=== PATIENT | male | born 1965 | race Hispanic/Latino ===

== ENCOUNTER 2024-01-31 01:21 | Inpatient (IN) | payer OTHER, SELFPAY ==
[2024-01-31] MEDS ORDERED: dilTIAZem 125 MG/25 ML SDV ONE (01:41)
[2024-01-31 02:19] LABS: Hematocrit 30.9 % (42.0-52.0); Hemoglobin 9.7 g/dL (14.0-18.0); Mean Corpuscular HGB CONC 31.4 g/dL (32.0-36.0); Mean Corpuscular Hemoglobin 28.4 pg (27.0-31.0); Mean Corpuscular Volume 90.6 fL (78.0-98.0); Mean Platelet Volume 9.2 fL (7.4-10.4); Platelet Count 151 10x3/uL (130-400); RBC Distribution Width 14.6 % (11.5-14.5); Red Blood Cell (RBC) Count 3.41 mill/uL (4.70-6.10)
[2024-01-31] MEDS ORDERED: Sodium Chloride 0.9% 100 ML ONE (02:22)
[2024-01-31] MEDS ORDERED: cefTRIAXone (ROCEPHIN) 2 GM VIAL ONE (02:22)
[2024-01-31] MEDS ORDERED: Azithromycin 500 MG VIAL ONE (02:22)
[2024-01-31 02:23] LABS: ALT (SGPT) 27 U/L (8-55); AST (SGOT) 48 U/L (5-34); Albumin 2.3 g/dL (3.5-5.0); Alkaline Phosphatase 105 U/L (40-110); Anion Gap 21 mmol/L (10-20); BUN (Urea Nitrogen) 58 mg/dL (8.4-25.7); Bilirubin, Total 0.6 mg/dL (0.2-1.2); Calc. Creatinine Clearance 0 mL/min (70-130); Calcium 8.5 mg/dL (7.8-10.44); Carbon Dioxide 18 mmol/L (22-29); Chloride 97 mmol/L (98-107); Estimated GFR 13; Globulin 5.5 g/dL (2.4-3.5); Glucose 144 mg/dL (70-105); Magnesium 1.8 mg/dL (1.6-2.6); Potassium 3.4 mmol/L (3.5-5.1); Protein, Total 7.8 g/dL (6.0-8.3); Sodium 133 mmol/L (136-145)
[2024-01-31 02:24] LABS: Acetaminophen Less than 10 mcg/mL (10.0-30.0); Alcohol Less than 10.0 mg/dL (Less than 10); Salicylate Less than 8.0 mg/dL (15.0-30.0)
[2024-01-31 02:44] LABS: Band 29 % (5-11); Lymphocytes 5 % (21-51); Monocytes 1 % (0-10); Neutrophil 65 % (42-75); Platelet Adequacy Comment Platelets Normal; RBC Morphology Within Normal Limits
[2024-01-31 03:08] LABS: Troponin I 0.022 ng/mL (< 0.028)
[2024-01-31] MEDS ORDERED: Ondansetron PF 4 MG/2 ML Vial ONE (03:12)
[2024-01-31 03:34] LABS: Bilirubin Negative (Negative); Blood, Urine Large (Negative); Glucose, Urine (Dipstick) Negative (Negative); Ketone, Urine Negative (Negative); Leukocyte Negative (Negative); Nitrite Negative (Negative); Protein, Urine (Dipstick) 100 mg/dL (Neg-Trace); Urobilinogen 0.2 mg/dL (Less than 2); pH, Urine 6.5 (5.0-9.0)
[2024-01-31 03:39] LABS: Bacteria/HPF None Seen HPF (None Seen); CAUTI Indications for Culture Fever or rigors; RBC/HPF Greater than 50 HPF (0-3); Squamous Epithelial None Seen HPF (0-3)
[2024-01-31 03:40] LABS: Clarity Cloudy (Clear)
[2024-01-31 03:41] LABS: Urine Culture Reflex Yes Yes
[2024-01-31 03:44] LABS: Amphetamine Not Detected (NotDetected); Barbiturates Screen Not Detected (NotDetected); Benzodiazepine Screen Not Detected (NotDetected); Cocaine Metabolite Screen Not Detected (NotDetected); Methadone Not Detected (NotDetected); Methamphetamine Not Detected (NotDetected); Opiate Screen Not Detected (NotDetected); Oxycodone Screen Not Detected (NotDetected); Phencyclidine (PCP) Not Detected (NotDetected); THC/Cannabinoid Screen Not Detected (NotDetected); Tricyclic Screen Not Detected (NotDetected)
[2024-01-31] MEDS ORDERED: Digoxin 0.5 MG/2 ML AMP ONE (04:52)
[2024-01-31 05:11] LABS: Troponin I 0.016 ng/mL (< 0.028)
[2024-01-31] MEDS ORDERED: Electrolyte Replacement Protocol 1 EACH IVPB SCH (05:37)
[2024-01-31] MEDS ORDERED: Acetaminophen 650 MG Suppository PR PRN (05:37)
[2024-01-31] MEDS ORDERED: Ondansetron PF 4 MG/2 ML Vial IVP PRN (05:37)
[2024-01-31] MEDS ORDERED: dilTIAZem 125 MG in Sodium Chloride 0.9% 100 ML IVPB SCH (05:45)
[2024-01-31] MEDS: Digoxin 0.5 MG/2 ML AMP SLOW IVP SCH (05:51)
[2024-01-31] MEDS: Albumin 25% 25 GM (100 mL) BOT IVPB SCH (06:12)
[2024-01-31] MEDS: Magnesium 2 GM/50 ML(in water) 2 GM in Premix 1 BAG IVPB SCH ×2 (06:12→10:08)
[2024-01-31] MEDS: Sodium Chloride 0.9% 1,000 ML IV SCH (06:12)
[2024-01-31] MEDS: Digoxin 0.5 MG/2 ML AMP ONE (06:14)
[2024-01-31 06:15] VITALS: BMI 23.9
[2024-01-31 07:43] LABS: MONO NEGATIVE CONTROL ZONE White (Negative) (White); MONO POSITIVE CONTROL Pink Line (Positive) (PINK/RED); Mononucleosis NEGATIVE (NEGATIVE)
[2024-01-31 08:02] LABS: Troponin I 0.018 ng/mL (< 0.028)
[2024-01-31] MEDS: Famotidine/PF 20 mg/2ml Vial SLOW IVP SCH (08:03)
[2024-01-31] MEDS: Heparin 5,000 UNITS/ML VIAL SC SCH (08:03)
[2024-01-31] MEDS: Cefepime 1 GM in Sodium Chloride 0.9% 100 ML IVPB SCH (08:03)
[2024-01-31 08:15] LABS: Calcium 7.1 mg/dL (7.8-10.44)
[2024-01-31 08:19] LABS: ALT (SGPT) 20 U/L (8-55); AST (SGOT) 35 U/L (5-34); Albumin 2.1 g/dL (3.5-5.0); Alkaline Phosphatase 74 U/L (40-110); Anion Gap 14 mmol/L (10-20); BUN (Urea Nitrogen) 52 mg/dL (8.4-25.7); Bilirubin, Total 0.3 mg/dL (0.2-1.2); Calc. Creatinine Clearance 22 mL/min (70-130); Carbon Dioxide 18 mmol/L (22-29); Chloride 108 mmol/L (98-107); Estimated GFR 16; Globulin 4.1 g/dL (2.4-3.5); Glucose 105 mg/dL (70-105); Lipase 27 U/L (8-78); Potassium 3.6 mmol/L (3.5-5.1); Protein, Total 6.2 g/dL (6.0-8.3); Sodium 136 mmol/L (136-145)
[2024-01-31 08:28] LABS: Legionella Urinary Ag Negative (Negative); Strep pneumo Urine Ag NEGATIVE (NEGATIVE)
[2024-01-31] MEDS: Potassium Chloride 20 MEQ TAB PO SCH (10:06)
[2024-01-31] MEDS: Amiodarone 200 MG TAB PO SCH ×2 (10:06→10:08)
[2024-01-31] MEDS: Acetaminophen 650 MG/20.3 ML UDCUP PO PRN (11:13)
[2024-01-31] MEDS: Acetaminophen 325 MG TAB PO PRN (19:30)
[2024-01-31] MEDS: Acetaminophen 325 MG TAB ONE (20:41)
[2024-02-01] MEDS: Azithromycin 500 MG in Sodium Chloride 0.9% 250 ML 250 ML IVPB SCH (01:02)
[2024-02-01] MEDS: Ondansetron ODT 4 MG TAB PO PRN (01:32)
[2024-02-01] MEDS: Morphine 2 MG/ML VIAL SLOW IVP SCH (02:41)
[2024-02-01] MEDS: Simethicone Chewable 80 MG TAB PO PRN (02:42)
[2024-02-01 06:35] LABS: Hematocrit 24.1 % (42.0-52.0); Hemoglobin 7.6 g/dL (14.0-18.0); Mean Corpuscular HGB CONC 31.5 g/dL (32.0-36.0); Mean Corpuscular Hemoglobin 28.1 pg (27.0-31.0); Mean Corpuscular Volume 89.3 fL (78.0-98.0); Mean Platelet Volume 9.4 fL (7.4-10.4); Platelet Count 172 10x3/uL (130-400); RBC Distribution Width 14.7 % (11.5-14.5)
[2024-02-01 06:46] LABS: Anion Gap 13 mmol/L (10-20); BUN (Urea Nitrogen) 46 mg/dL (8.4-25.7); Calc. Creatinine Clearance 20 mL/min (70-130); Carbon Dioxide 20 mmol/L (22-29); Chloride 109 mmol/L (98-107); Estimated GFR 15; Glucose 104 mg/dL (70-105); Potassium 4.1 mmol/L (3.5-5.1); Sodium 138 mmol/L (136-145)
[2024-02-01 06:56] LABS: Band 21 % (5-11); Lymphocytes 4 % (21-51); Metamyelocyte 1 % (0-0); Neutrophil 74 % (42-75); Platelet Adequacy Comment Platelets Normal; RBC Morphology Within Normal Limits
[2024-02-01] MEDS: Ondansetron PF 4 MG/2 ML Vial IVP PRN (07:52)
[2024-02-01] MEDS: Nicotine 21 MG PATCH TD SCH (08:08)
[2024-02-01] MEDS: Sodium Chloride 0.9% 1,000 ML IV SCH (12:05)
[2024-02-01] MEDS ORDERED: Amiodarone 200 MG TAB PO SCH (15:00)
[2024-02-01 18:23] LABS: Hematocrit 24.7 % (42.0-52.0); Hemoglobin 7.9 g/dL (14.0-18.0)
[2024-02-01] MEDS: Amiodarone 200 MG TAB PO SCH (20:14)
[2024-02-01] MEDS: Cefepime 1 GM in Sodium Chloride 0.9% 100 ML IVPB SCH (20:14)
[2024-02-02 05:25] LABS: Hematocrit 23.7 % (42.0-52.0); Hemoglobin 7.5 g/dL (14.0-18.0); Mean Corpuscular HGB CONC 31.6 g/dL (32.0-36.0); Mean Corpuscular Hemoglobin 27.6 pg (27.0-31.0); Mean Corpuscular Volume 87.1 fL (78.0-98.0); Mean Platelet Volume 9.4 fL (7.4-10.4); Platelet Count 175 10x3/uL (130-400); RBC Distribution Width 14.9 % (11.5-14.5); Red Blood Cell (RBC) Count 2.72 mill/uL (4.70-6.10)
[2024-02-02 05:41] LABS: Anion Gap 14 mmol/L (10-20); BUN (Urea Nitrogen) 44 mg/dL (8.4-25.7); Calc. Creatinine Clearance 21 mL/min (70-130); Calcium 7.7 mg/dL (7.8-10.44); Carbon Dioxide 16 mmol/L (22-29); Chloride 110 mmol/L (98-107); Estimated GFR 15; Glucose 100 mg/dL (70-105); Iron 9 ug/dL (65-175); Lipase 54 U/L (8-78); Potassium 3.6 mmol/L (3.5-5.1); Sodium 136 mmol/L (136-145)
[2024-02-02 05:59] LABS: Band 14 % (5-11); Lymphocytes 4 % (21-51); Monocytes 1 % (0-10); Myelocyte 2 % (0-0); Neutrophil 79 % (42-75); Platelet Adequacy Comment Platelets Normal; RBC Morphology Within Normal Limits
[2024-02-02 06:21] LABS: Ferritin 3542.25 ng/mL (22-322)
[2024-02-02] MEDS: Pantoprazole DR 40 MG TAB PO SCH (08:44)
[2024-02-02] MEDS: Amiodarone 200 MG TAB PO SCH (09:16)
[2024-02-02] MEDS: LevoFLOXacin 750 MG TAB PO SCH (09:16)
[2024-02-03 03:56] LABS: #Basophils Less than 0.03 10x3/uL (0.0-0.2); %Basophils 0.2 % (0.0-1.0); %Eosinophils 1.6 % (0.0-10.0); %Lymphocytes 14.5 % (21.0-51.0); %Monocytes 4.3 % (0.0-10.0); %Neutrophils 74.9 % (42.0-75.0); Hematocrit 23.5 % (42.0-52.0); Hemoglobin 7.5 g/dL (14.0-18.0); Mean Corpuscular HGB CONC 31.9 g/dL (32.0-36.0); Mean Corpuscular Hemoglobin 27.3 pg (27.0-31.0); Mean Corpuscular Volume 85.5 fL (78.0-98.0); Mean Platelet Volume 9.1 fL (7.4-10.4); Platelet Count 175 10x3/uL (130-400); RBC Distribution Width 14.8 % (11.5-14.5); Red Blood Cell (RBC) Count 2.75 mill/uL (4.70-6.10)
[2024-02-03 04:49] LABS: Anion Gap 13 mmol/L (10-20); BUN (Urea Nitrogen) 47 mg/dL (8.4-25.7); Calc. Creatinine Clearance 21 mL/min (70-130); Calcium 7.8 mg/dL (7.8-10.44); Carbon Dioxide 18 mmol/L (22-29); Chloride 110 mmol/L (98-107); Estimated GFR 15; Glucose 99 mg/dL (70-105); Potassium 3.5 mmol/L (3.5-5.1); Sodium 137 mmol/L (136-145)
[2024-02-03] MEDS ORDERED: LevoFLOXacin 750 MG TAB PO SCH (06:00)
[2024-02-03 12:00] VITALS: BP 149/74; TEMP 98
[2024-02-04] MEDS ORDERED: LevoFLOXacin 500 MG TAB PO SCH (09:00)
== END 2024-02-03 14:29 | disposition home or self-care (01) | DRG 871 ==
LOC: ERS 01:21 → CCU 04:55 → 2SW 02-01 16:28
PROVIDERS: ADMIT Student in an Organized Health Care Education/Training Program; ATTEND Emergency Medicine
DX: A41.9 Sepsis, unspecified organism (principal); J18.9 Pneumonia, unspecified organism; N17.9 Acute kidney failure, unspecified; E87.20 Acidosis, unspecified; E87.1 Hypo-osmolality and hyponatremia; N18.5 Chronic kidney disease, stage 5; R16.1 Splenomegaly, not elsewhere classified; R65.20 Severe sepsis without septic shock; F17.210 Nicotine dependence, cigarettes, uncomplicated; E88.09 Other disorders of plasma-protein metabolism, not elsewhere classified; D63.8 Anemia in other chronic diseases classified elsewhere; E78.6 Lipoprotein deficiency; Z71.6 Tobacco abuse counseling; I48.0 Paroxysmal atrial fibrillation; R59.1 Generalized enlarged lymph nodes; Z79.899 Other long term (current) drug therapy
CPT/HCPCS: 36415; 36416; 71045; 74176; 76770; 80048; 80053; 80306; 80307; 81001; 82274; 82607; 82668; 82728; 83010; 83540; 83605; 83615; 83690; 83735; 83880; 84300; 84443; 84484; 85025; 85046; 86308; 86850; 87040; 87449; 87899; 88184; 93005; 93306; 96374; 96375; J0456; J0692; J0696; J1160; J1644; J2272; J2405; J3475; J3490; J7050; P9047; Q0162; S0028